=== PATIENT | female | born 1935 | race Caucasian/White ===

== ENCOUNTER → 2017-05-11 | Outpatient (REF) | payer MEDICARE, BC ==
[2017-05-16 00:06] LABS: Lyme Disease IgG Ab 18 kDa Ban Absent (.); Lyme Disease IgG Ab 23 kDa Ban Absent (.); Lyme Disease IgG Ab 28 kDa Ban Absent (.); Lyme Disease IgG Ab 30 kDa Ban Present (.); Lyme Disease IgG Ab 39 kDa Ban Absent (.); Lyme Disease IgG Ab 41 kDa Ban Present (.); Lyme Disease IgG Ab 45 kDa Ban Absent (.); Lyme Disease IgG Ab 58 kDa Ban Absent (.); Lyme Disease IgG Ab 66 kDa Ban Present (.); Lyme Disease IgG Ab 93 kDa Ban Absent (.); Lyme Disease IgG West Blot Int Negative (.); Lyme Disease IgG/IgM Antibodie 1.27 ISR (0.00-0.90); Lyme Disease IgM Ab 23 kDa Ban Absent (.); Lyme Disease IgM Ab 39 kDa Ban Absent (.); Lyme Disease IgM Ab 41 kDa Ban Absent (.); Lyme Disease IgM Ab Quantitati <0.80 index (0.00-0.79); Lyme Disease IgM West Blot Int Negative (.)
== END ==
LOC: M LAB REF 10:39
PROVIDERS: ATTEND Internal Medicine
DX: M35.3 Polymyalgia rheumatica (principal)

== ENCOUNTER → 2017-06-15 | Outpatient (REF) | payer MEDICARE, BC | LOC: M LAB REF 16:45 | PROVIDERS: ATTEND Obstetrics & Gynecology | DX: N81.11 Cystocele, midline (principal); R39.89 Other symptoms and signs involving the genitourinary system ==

== ENCOUNTER → 2017-08-06 | Outpatient (CLI) | payer MEDICARE, BC ==
--- NOTE | 2017-08-06 09:10 | REPMRS ---
Patient History The patient states she has not had a clinical breast exam in over a year. Patient has history of other cancer. Benign excisional biopsy of both breasts. Took hormonal contraceptives for 1 year. Took estrogen for 5 years. Digital Mammo Screening Bilat: August 06, 2017 - Exam #: [id number] Bilateral CC and MLO view(s) were taken. Technologist: Tabitha Agustin, Technologist Prior study comparison: June 10, 2016, bilateral digital mammo screening bilat performed at [facility]. April 10, 2015, bilateral digital mammo screening bilat performed at [facility]. FINDINGS: There are scattered fibroglandular densities. There is a fairly symmetric fibroglandular pattern in both breasts. There has been no interval development of masses, areas of architectural distortion or clusters of microcalcifications typical of malignancy. ASSESSMENT: BI-RADS/ACR category 2 mammogram. Benign finding(s). Recommendation Routine screening mammogram of both breasts in 1 year (for women over age 40). This mammogram was interpreted with the aid of an FDA-approved computer-aided dectection system. Electronically Signed By: Meir Baum MD 08/06/17 [id number]
== END ==
LOC: M RAD 07:42
PROVIDERS: ATTEND Internal Medicine
DX: Z12.31 Encounter for screening mammogram for malignant neoplasm of breast (principal)

== ENCOUNTER → 2017-09-17 | Outpatient (CLI) | payer MEDICARE, BC ==
--- NOTE | 2017-09-17 13:45 | REP ---
PA and lateral chest: There are no comparisons. The lung pedraza appear hyperinflated compatible with COPD, however, requiring clinical confirmation. There are no infiltrates, effusions or masses. The lung pedraza otherwise clear. Cardiac size is normal. The jami, mediastinum, and bony thorax are unremarkable. Impression: Essentially negative PA and lateral chest except for hyperinflated appearing lung pedraza. Signed by Meir Blair MD 09/17/2017 01:36 P
== END ==
LOC: M RAD 11:08
PROVIDERS: ATTEND Internal Medicine
DX: G44.83 Primary cough headache (principal); Z79.899 Other long term (current) drug therapy

== ENCOUNTER 2017-12-07 08:35 | Emergency (ER) | payer MEDICARE, BC ==
[2017-12-07] MEDS ORDERED: ALBUTEROL SULFATE 2.5 MG/0.5 ML INH NEB SOLN As Ordered (10:17)
[2017-12-07 11:22] LABS: BASO # 0.1 10^3/uL (0.0-0.2); BASO % 1.1 % (0.0-1.0); EOS # 0.4 10^3/uL (0.0-0.50); EOS % 3.8 % (0.0-3.0); HEMATOCRIT 44.6 % (36.0-47.0); HEMOGLOBIN 14.4 g/dl (12.0-16.0); IMMATURE GRANULOCYTE % 0.3 % (0-0); LYMPH # 2.9 10^3/uL (1.5-4.5); LYMPH % 31.6 % (24.0-44.0); MEAN CORPUSCULAR HEMOGLOBIN 31.2 pg (27.0-33.0); MEAN CORPUSCULAR HGB CONC 32.3 g/dl (32.0-36.5); MEAN CORPUSCULAR VOLUME 96.7 fl (80.0-96.0); MONO # 0.7 10^3/uL (0.0-0.8); MONO % 7.3 % (0.0-5.0); NEUTROPHILS # 5.1 10^3/uL (1.8-7.7); NEUTROPHILS % 55.9 % (36.0-66.0); PLATELET COUNT, AUTOMATED 337 10^3/uL (150-450); RED BLOOD COUNT 4.61 10^6/uL (4.00-5.40); RED CELL DISTRIBUTION WIDTH 14.8 % (11.5-14.5); WHITE BLOOD COUNT 9.2 10^3/uL (4.0-10.0)
[2017-12-07 11:50] LABS: ANION GAP 9 MEQ/L (8-16); BLOOD UREA NITROGEN 14 MG/DL (7-18); CARBON DIOXIDE LEVEL 29 MEQ/L (21-32); CHLORIDE LEVEL 102 MEQ/L (98-107); CPK CREATINE PHOSPHOKINASE 35 U/L (26-192); CREATININE FOR GFR 0.93 MG/DL (0.55-1.02); GLOMERULAR FILTRATION RATE > 60.0 (>32); GLUCOSE, FASTING 115 MG/DL (70-100); MB/CK RELATIVE INDEX 2.85 (< OR =4); NT-PRO BNP 377 PG/ML (<450); POTASSIUM SERUM 4.1 MEQ/L (3.5-5.1); SODIUM LEVEL 140 MEQ/L (136-145); TROPONIN I < 0.02 NG/ML (< 0.10)
== END 2017-12-07 12:13 | disposition home or self-care (01) ==
LOC: M ED 08:35
DX: J31.0 Chronic rhinitis (principal); R05 Cough; Z87.891 Personal history of nicotine dependence; Z88.0 Allergy status to penicillin
CPT/HCPCS: 71046

== ENCOUNTER → 2018-04-28 | Outpatient (REF) | payer MEDICARE, BC ==
[2018-04-28 16:05] LABS: CREATININE FOR GFR 0.91 MG/DL (0.55-1.30); GLOMERULAR FILTRATION RATE > 60.0 (>32)
[2018-04-28 16:05] LABS: BLOOD UREA NITROGEN 19 MG/DL (7-18)
== END ==
LOC: M LABDRAW1 11:25
DX: M54.2 Cervicalgia (principal)
CPT/HCPCS: 82565

== ENCOUNTER → 2018-04-30 | Outpatient (CLI) | payer MEDICARE, BC | LOC: M PLARAD 09:45 | DX: M54.2 Cervicalgia (principal); M25.512 Pain in left shoulder | CPT/HCPCS: 72156 ==

== ENCOUNTER → 2018-06-28 | Outpatient (REF) | payer MEDICARE, BC ==
[2018-06-28 13:51] LABS: C REACTIVE PROTEIN QUANTITATIV < 0.30 MG/DL (0.00-0.30)
== END ==
LOC: M LAB REF 12:00
DX: M54.2 Cervicalgia (principal)
CPT/HCPCS: 86140

== ENCOUNTER → 2018-08-17 | Outpatient (CLI) | payer MEDICARE, BC ==
[2018-08-17 11:36] LABS: BLOOD UREA NITROGEN 21 MG/DL (7-18)
[2018-08-17 11:36] LABS: CREATININE FOR GFR 0.78 MG/DL (0.55-1.30); GLOMERULAR FILTRATION RATE > 60.0 (>32)
== END ==
LOC: M LAB 10:08
DX: M75.112 Incomplete rotator cuff tear or rupture of left shoulder, not specified as traumatic (principal)

== ENCOUNTER → 2018-08-17 | Outpatient (CLI) | payer MEDICARE, BC | LOC: M RAD 09:38 | DX: Z12.31 Encounter for screening mammogram for malignant neoplasm of breast (principal); M75.112 Incomplete rotator cuff tear or rupture of left shoulder, not specified as traumatic; Z92.0 Personal history of contraception; Z92.23 Personal history of estrogen therapy; Z92.89 Personal history of other medical treatment | CPT/HCPCS: 77067 ==

== ENCOUNTER 2020-10-19 10:09 | Emergency (ER) | payer MEDICARE, BC ==
[~2020-10-19] VITALS: Ht 167.6 cm; Wt 64.5 kg
[2020-10-19] MEDS ORDERED: IBUP-1022 (10:30)
[2020-10-19] MEDS ORDERED: SIMV40TA20 (10:30)
--- NOTE | 2020-10-19 10:51 | REP ---
INDICATION: trauma. COMPARISON: None. TECHNIQUE: Four views. FINDINGS: Four views of the right ankle demonstrate diffuse osteopenia. Ankle mortise is intact. There is mild anterior periarticular swelling. Dystrophic soft tissue calcification or vascular calcification is visible. No fracture is seen. Plantar calcaneal spur is noted. IMPRESSION: No fracture noted. Diffuse osteopenia. Anterior soft tissue swelling. <Electronically signed by Lauri Freeman > 10/19/20 [id number]
--- NOTE | 2020-10-19 10:56 | REP ---
INDICATION: trauma. COMPARISON: Comparison radiographs of the right knee are from February 19, 2012.. TECHNIQUE: Five views. FINDINGS: Five views of the right knee demonstrate diffuse osteopenia. Vascular calcification is noted. There is an obliquely oriented fracture through the proximal fibular diametaphyseal region. This is best appreciated on the lateral radiograph. There is fullness in the suprapatellar bursa on the lateral radiograph indicative of a joint effusion. There is mild patellar spurring. No femoral fracture is seen. There is some clothing artifact. On the oblique radiograph there is a question of depression of the medial tibial plateau. This is not seen on any other view although it would explain the joint effusion.. . No opaque foreign body noted. IMPRESSION: Obliquely oriented nondisplaced fracture through the proximal fibular diametaphyseal zone. Diffuse osteopenia. Evidence of intra-articular joint effusion. Oblique view only findings suggestive of depression of the medial tibial plateau. Consider CT study of the knee. Rule out tibial plateau fracture.. <Electronically signed by Lauri Freeman > 10/19/20 [id number]
--- NOTE | 2020-10-19 11:39 | REP ---
INDICATION: ?tibial plateau fx on xray. COMPARISON: Comparison is made with today's radiographs.. TECHNIQUE: Helical scanning is acquired and 2 mm axial images re-formatted. Coronal and sagittal MPR images are generated and reviewed. FINDINGS: There is diffuse osteopenia. There is no evidence of acute fracture in the distal femur, proximal tibia, or patella. There is a somewhat irregular spur noted projecting posterosuperior Yecenia from the posterior aspect of the medial tibial plateau. This is felt to account for the radiographic finding. No acute tibial plateau fracture is seen. There is an obliquely oriented proximal fibular fracture as noted radiographically without displacement. There is evidence of a suprapatellar bursal joint effusion. Vascular calcification is noted. IMPRESSION: There is a right knee joint effusion. Diffuse osteoporosis is seen. An acute oblique fracture nondisplaced proximal fibula seen. No tibial plateau fracture is seen. Patellofemoral and medial compartment osteoarthritis. There is prominent posterior spurring from the medial aspect of the tibial plateau which account for the radiographic finding. <Electronically signed by Lauri Freeman > 10/19/20 [id number]
[2020-10-19] MEDS ORDERED: NORCO, ANEXSIA 5/325MG TABLET (HYDROcodone/ACETAMINOPHEN) PO ONE (12:30)
[2020-10-19] MEDS ORDERED: NORC1TAB7 PO (13:37)
[2020-10-19 15:20] VITALS: BP 145/68
== END 2020-10-19 15:21 | disposition home or self-care (01) ==
LOC: M ED 10:09
DX: S82.831A Other fracture of upper and lower end of right fibula, initial encounter for closed fracture (principal); M25.461 Effusion, right knee; M81.0 Age-related osteoporosis without current pathological fracture; M85.861 Other specified disorders of bone density and structure, right lower leg; W19.XXXA Unspecified fall, initial encounter; Y92.098 Other place in other non-institutional residence as the place of occurrence of the external cause; E78.9 Disorder of lipoprotein metabolism, unspecified; Z88.0 Allergy status to penicillin; Z79.899 Other long term (current) drug therapy

== ENCOUNTER → 2022-03-17 | Outpatient (REF) | payer MEDICARE ==
[~2022-03-17] MED LIST: IBUP-1022; NORC1TAB7 PO; SIMV40TA20
== END ==
LOC: M LAB REF 10:14
PROVIDERS: ATTEND Internal Medicine
DX: M25.50 Pain in unspecified joint (principal)

== ENCOUNTER → 2022-09-08 | Outpatient (CLI) | payer MEDICARE ==
[~2022-09-08] MED LIST changes: +ISOVUE-300 61% 50ML VIAL As Ordered ONE; +LIDOCAINE 1% MDV 20ML VIAL As Ordered ONE; +methylPREDNISolone SUSP 40MG/ML 1ML VIAL (DEPO MEDROL) As Ordered ONE
== END ==
LOC: M RAD 09:36
PROVIDERS: ATTEND Physician Assistant
DX: M19.011 Primary osteoarthritis, right shoulder (principal); M19.012 Primary osteoarthritis, left shoulder
CPT/HCPCS: 76000; J1030; Q9967

== ENCOUNTER → 2023-01-23 | Outpatient (REF) | payer MEDICARE ==
[~2023-01-23] MED LIST changes: -ISOVUE-300 61% 50ML VIAL As Ordered ONE; -LIDOCAINE 1% MDV 20ML VIAL As Ordered ONE; -methylPREDNISolone SUSP 40MG/ML 1ML VIAL (DEPO MEDROL) As Ordered ONE
[2023-01-23 11:47] LABS: BASO # 0.1 10^3/uL (0.0-0.2); EOS # 0.2 10^3/uL (0.0-0.5); HEMATOCRIT 44.5 % (36.0-47.0); HEMOGLOBIN 14.4 g/dl (12.0-15.5); LYMPH # 3.1 10^3/uL (1.5-5.0); LYMPH % 35.2 % (24.0-44.0); MEAN CORPUSCULAR HEMOGLOBIN 32.3 pg (27.0-33.0); MEAN CORPUSCULAR HGB CONC 32.4 g/dl (32.0-36.5); MEAN CORPUSCULAR VOLUME 99.8 fl (80.0-96.0); MONO # 0.7 10^3/uL (0.0-0.8); MONO % 7.8 % (2.0-8.0); NEUTROPHILS # 4.8 10^3/uL (1.5-8.5); NEUTROPHILS % 53.6 % (36.0-66.0); PLATELET COUNT, AUTOMATED 319 10^3/uL (150-450); RED BLOOD COUNT 4.46 10^6/uL (4.00-5.40); WHITE BLOOD COUNT 8.9 10^3/uL (4.0-10.0)
[2023-01-23 12:22] LABS: ALBUMIN 4.3 G/DL (3.2-5.2); ALKALINE PHOSPHATASE 82 U/L (46-116); ALT/SGPT 38 U/L (7.0-40); AST/SGOT 34 U/L (<34); BILIRUBIN,TOTAL 0.9 MG/DL (0.3-1.2); BLOOD UREA NITROGEN 21 MG/DL (9-23); CARBON DIOXIDE LEVEL 29 MMOL/L (20-31); CHLORIDE LEVEL 102 MMOL/L (98-107); GLOMERULAR FILTRATION RATE > 60.0 (>32); GLUCOSE, FASTING 115 MG/DL (74-106); POTASSIUM SERUM 4.5 MMOL/L (3.5-5.1); SODIUM LEVEL 140 MMOL/L (136-145); THYROID STIMULATING HORMONE 2.446 uIU/ML (0.55-4.78); TOTAL PROTEIN 7.4 G/DL (5.7-8.2)
== END ==
LOC: M LABDRAWC 11:07
PROVIDERS: ATTEND Internal Medicine
DX: M15.9 Polyosteoarthritis, unspecified (principal); R73.09 Other abnormal glucose; E03.9 Hypothyroidism, unspecified

== ENCOUNTER → 2023-12-04 | Outpatient (REF) | payer MEDICARE | LOC: M LAB REF 12:18 | PROVIDERS: ATTEND Internal Medicine | DX: M15.9 Polyosteoarthritis, unspecified (principal) ==

== ENCOUNTER → 2023-12-22 | Outpatient (REF) | payer MEDICARE ==
[2023-12-22 19:41] LABS: BASO # 0.1 10^3/uL (0.0-0.2); EOS # 0.2 10^3/uL (0.0-0.5); EOS % 2.2 % (0.0-3.0); HEMATOCRIT 40.6 % (36.0-47.0); HEMOGLOBIN 13.3 g/dl (12.0-15.5); LYMPH # 3.1 10^3/uL (1.5-5.0); LYMPH % 34.7 % (24.0-44.0); MEAN CORPUSCULAR HEMOGLOBIN 32.2 pg (27.0-33.0); MEAN CORPUSCULAR HGB CONC 32.8 g/dl (32.0-36.5); MEAN CORPUSCULAR VOLUME 98.3 fl (80.0-96.0); MONO # 0.7 10^3/uL (0.0-0.8); MONO % 7.9 % (2.0-8.0); NEUTROPHILS # 4.8 10^3/uL (1.5-8.5); NEUTROPHILS % 53.9 % (36.0-66.0); PLATELET COUNT, AUTOMATED 367 10^3/uL (150-450); RED BLOOD COUNT 4.13 10^6/uL (4.00-5.40); WHITE BLOOD COUNT 8.9 10^3/uL (4.0-10.0)
[2023-12-22 20:20] LABS: THYROID STIMULATING HORMONE 2.804 uIU/ML (0.55-4.78)
[2023-12-22 20:24] LABS: ALBUMIN 3.8 G/DL (3.2-5.2); ALKALINE PHOSPHATASE 74 U/L (46-116); ALT/SGPT 25 U/L (7.0-40); AST/SGOT 23 U/L (<34); BILIRUBIN,TOTAL 0.4 MG/DL (0.3-1.2); BLOOD UREA NITROGEN 24 MG/DL (9-23); CALCIUM LEVEL 9.5 MG/DL (8.3-10.6); CARBON DIOXIDE LEVEL 28 MMOL/L (20-31); CHLORIDE LEVEL 105 MMOL/L (98-107); CREATININE FOR GFR 0.89 MG/DL (0.55-1.30); GLOMERULAR FILTRATION RATE > 60.0 (>32); GLUCOSE, FASTING 103 MG/DL (74-106); POTASSIUM SERUM 4.3 MMOL/L (3.5-5.1); SODIUM LEVEL 140 MMOL/L (136-145); TOTAL PROTEIN 6.8 G/DL (5.7-8.2)
[2023-12-25 08:51] LABS: CHOLESTEROL LEVEL 225 MG/DL (<200); CHOLESTEROL RISK RATIO 3.23 (<5); HDL CHOLESTEROL 69.6 MG/DL (>40); LDL CHOLESTEROL 136.4 MG/DL (<100); NON-HDL-C 155.4 MG/DL; TRIGLYCERIDES LEVEL 95 MG/DL (<150)
== END ==
LOC: M LABDRAWC 17:36
PROVIDERS: ATTEND Internal Medicine
DX: E78.00 Pure hypercholesterolemia, unspecified (principal); E03.9 Hypothyroidism, unspecified

== ENCOUNTER 2024-04-27 01:12 | Inpatient (IN) | payer MEDICARE ==
[~2024-04-27] VITALS: Ht 162.6 cm; Wt 95.4 kg
[2024-04-27] VITALS (12 sets, daily range): BP systolic 146–192; BP diastolic 64–98; TEMP 96.7–97.9; O2SAT 94–99
[~2024-04-27 01:12] MED LIST changes: -IBUP-1022; +IBUP-1022 PO
[2024-04-27] MEDS ORDERED: ISOVUE-370 76% 100ML VIAL As Ordered ONE (01:31)
[2024-04-27 01:43] LABS: BASO # 0.1 10^3/uL (0.0-0.2); BASO % 1.3 % (0.0-1.0); EOS # 0.2 10^3/uL (0.0-0.5); EOS % 2.5 % (0.0-3.0); HEMATOCRIT 41.4 % (36.0-47.0); HEMOGLOBIN 13.9 g/dl (12.0-15.5); LYMPH # 3.5 10^3/uL (1.5-5.0); LYMPH % 37.3 % (24.0-44.0); MEAN CORPUSCULAR HEMOGLOBIN 32.3 pg (27.0-33.0); MEAN CORPUSCULAR HGB CONC 33.6 g/dl (32.0-36.5); MEAN CORPUSCULAR VOLUME 96.3 fl (80.0-96.0); MONO % 10.7 % (2.0-8.0); NEUTROPHILS # 4.4 10^3/uL (1.5-8.5); NEUTROPHILS % 47.9 % (36.0-66.0); PLATELET COUNT, AUTOMATED 328 10^3/uL (150-450); WHITE BLOOD COUNT 9.3 10^3/uL (4.0-10.0)
[2024-04-27 02:04] LABS: INR 0.98; PARTIAL THROMBOPLASTIN TIME 27.1 SECONDS (24.8-34.2); PROTHROMBIN TIME 12.7 SECONDS (12.5-14.5)
[2024-04-27 02:07] LABS: CK-MB VALUE MASS < 1.0 NG/ML (<3.6)
[2024-04-27 02:08] LABS: BLOOD UREA NITROGEN 22 MG/DL (9-23); CALCIUM LEVEL 10.1 MG/DL (8.3-10.6); CARBON DIOXIDE LEVEL 32 MMOL/L (20-31); CHLORIDE LEVEL 105 MMOL/L (98-107); CREATININE FOR GFR 0.82 MG/DL (0.55-1.30); GLOMERULAR FILTRATION RATE > 60.0 (>32); GLUCOSE, FASTING 98 MG/DL (74-106); POTASSIUM SERUM 3.7 MMOL/L (3.5-5.1); SODIUM LEVEL 142 MMOL/L (136-145)
[2024-04-27 02:12] LABS: CPK CREATINE PHOSPHOKINASE 73 U/L (34-145); MB/CK RELATIVE INDEX 1.36 (< OR =4)
[2024-04-27] MEDS: LABETALOL 100MG/20ML VIAL IV STA (02:29)
[2024-04-27] MEDS: ASPIRIN 325 MG TAB PO ONE (02:45)
[2024-04-27] MEDS ORDERED: NS 1,000 ML IV SCH (03:20)
[2024-04-27] MEDS: KCL 20MEQ in NS 1000ML 1,000 ML IV SCH (03:56)
[2024-04-27 06:37] LABS: BASO # 0.1 10^3/uL (0.0-0.2); BASO % 1.1 % (0.0-1.0); EOS # 0.2 10^3/uL (0.0-0.5); HEMATOCRIT 39.2 % (36.0-47.0); HEMOGLOBIN 13.2 g/dl (12.0-15.5); LYMPH # 2.5 10^3/uL (1.5-5.0); LYMPH % 27.7 % (24.0-44.0); MEAN CORPUSCULAR HEMOGLOBIN 32.4 pg (27.0-33.0); MEAN CORPUSCULAR HGB CONC 33.7 g/dl (32.0-36.5); MEAN CORPUSCULAR VOLUME 96.3 fl (80.0-96.0); MONO # 0.9 10^3/uL (0.0-0.8); MONO % 10.1 % (2.0-8.0); NEUTROPHILS # 5.2 10^3/uL (1.5-8.5); NEUTROPHILS % 58.8 % (36.0-66.0); PLATELET COUNT, AUTOMATED 306 10^3/uL (150-450); RED BLOOD COUNT 4.07 10^6/uL (4.00-5.40); WHITE BLOOD COUNT 8.8 10^3/uL (4.0-10.0)
[2024-04-27] MEDS ORDERED: SIMV20TA22 PO (07:12)
[2024-04-27] MEDS ORDERED: HOME MED LIST COMPLETE! XX SCH (07:15)
[2024-04-27 07:35] LABS: ALBUMIN 3.4 G/DL (3.2-5.2); ALKALINE PHOSPHATASE 76 U/L (46-116); ALT/SGPT 23 U/L (7.0-40); AST/SGOT 20 U/L (<34); BILIRUBIN,DIRECT 0.1 MG/DL (<0.4); BILIRUBIN,TOTAL 0.6 MG/DL (0.3-1.2); BLOOD UREA NITROGEN 20 MG/DL (9-23); CALCIUM LEVEL 9.4 MG/DL (8.3-10.6); CARBON DIOXIDE LEVEL 29 MMOL/L (20-31); CHLORIDE LEVEL 105 MMOL/L (98-107); CHOLESTEROL LEVEL 210 MG/DL (<200); CHOLESTEROL RISK RATIO 3.18 (<5); GLOMERULAR FILTRATION RATE > 60.0 (>32); GLUCOSE, FASTING 102 MG/DL (74-106); HDL CHOLESTEROL 65.9 MG/DL (>40); LDL CHOLESTEROL 132.5 MG/DL (<100); NON-HDL-C 144.1 MG/DL; POTASSIUM SERUM 3.6 MMOL/L (3.5-5.1); SODIUM LEVEL 141 MMOL/L (136-145); TOTAL PROTEIN 6.3 G/DL (5.7-8.2); TRIGLYCERIDES LEVEL 58 MG/DL (<150)
[2024-04-27 08:08] LABS: HEMOGLOBIN A1c 5.6 % (4.0-6.0)
[2024-04-27] MEDS: HEPARIN SOD (PORCINE) 5000UNITS/ML 1ML VIAL/SYRINGE SQ SCH (08:20)
[2024-04-27] MEDS: ASPIRIN 81MG ENTERIC TABLET PO SCH (08:20)
[2024-04-27] MEDS: hydrALAZINE 20MG/ML 1ML VIAL IV ONE (10:30)
[2024-04-27] MEDS: CLOPIDOGREL 75 MG TAB PO SCH (14:16)
[2024-04-27] MEDS: hydrALAZINE 20MG/ML 1ML VIAL IV PRN (14:16)
[2024-04-27] MEDS: RAMELTEON 8 MG TAB (ROZEREM) PO SCH (21:13)
[2024-04-27] MEDS: ATORVASTATIN 20 MG TAB PO SCH (21:13)
[2024-04-28] VITALS (10 sets, daily range): BP systolic 82–190; BP diastolic 47–95; TEMP 96.3–97.5; O2SAT 93–99
[2024-04-28 06:51] LABS: HEMATOCRIT 41.5 % (36.0-47.0); HEMOGLOBIN 13.9 g/dl (12.0-15.5); MEAN CORPUSCULAR HEMOGLOBIN 32.5 pg (27.0-33.0); MEAN CORPUSCULAR HGB CONC 33.5 g/dl (32.0-36.5); PLATELET COUNT, AUTOMATED 338 10^3/uL (150-450); RED BLOOD COUNT 4.28 10^6/uL (4.00-5.40); WHITE BLOOD COUNT 9.8 10^3/uL (4.0-10.0)
[2024-04-28 07:20] LABS: ALBUMIN 3.6 G/DL (3.2-5.2); ALKALINE PHOSPHATASE 78 U/L (46-116); ALT/SGPT 24 U/L (7.0-40); AST/SGOT 22 U/L (<34); BILIRUBIN,TOTAL 0.8 MG/DL (0.3-1.2); BLOOD UREA NITROGEN 18 MG/DL (9-23); CALCIUM LEVEL 9.8 MG/DL (8.3-10.6); CARBON DIOXIDE LEVEL 28 MMOL/L (20-31); CHLORIDE LEVEL 104 MMOL/L (98-107); CREATININE FOR GFR 0.74 MG/DL (0.55-1.30); GLOMERULAR FILTRATION RATE > 60.0 (>32); GLUCOSE, FASTING 112 MG/DL (74-106); SODIUM LEVEL 140 MMOL/L (136-145); TOTAL PROTEIN 6.6 G/DL (5.7-8.2)
[2024-04-29] VITALS (10 sets, daily range): BP systolic 135–197; BP diastolic 63–91; TEMP 97–98.3; O2SAT 92–97
[2024-04-29 09:49] LABS: HEMATOCRIT 41.6 % (36.0-47.0); HEMOGLOBIN 13.9 g/dl (12.0-15.5); MEAN CORPUSCULAR HEMOGLOBIN 32.5 pg (27.0-33.0); MEAN CORPUSCULAR HGB CONC 33.4 g/dl (32.0-36.5); MEAN CORPUSCULAR VOLUME 97.2 fl (80.0-96.0); PLATELET COUNT, AUTOMATED 380 10^3/uL (150-450); RED BLOOD COUNT 4.28 10^6/uL (4.00-5.40); WHITE BLOOD COUNT 9.3 10^3/uL (4.0-10.0)
[2024-04-29 10:18] LABS: ALBUMIN 3.6 G/DL (3.2-5.2); ALKALINE PHOSPHATASE 82 U/L (46-116); ALT/SGPT 28 U/L (7.0-40); AST/SGOT 20 U/L (<34); BILIRUBIN,TOTAL 0.7 MG/DL (0.3-1.2); BLOOD UREA NITROGEN 20 MG/DL (9-23); CALCIUM LEVEL 9.6 MG/DL (8.3-10.6); CARBON DIOXIDE LEVEL 24 MMOL/L (20-31); CHLORIDE LEVEL 104 MMOL/L (98-107); GLOMERULAR FILTRATION RATE > 60.0 (>32); GLUCOSE, FASTING 174 MG/DL (74-106); POTASSIUM SERUM 3.6 MMOL/L (3.5-5.1); SODIUM LEVEL 140 MMOL/L (136-145); TOTAL PROTEIN 6.7 G/DL (5.7-8.2)
[2024-04-29] MEDS: CEFDINIR 300 MG CAP (OMNICEF) PO SCH (12:46)
[2024-04-30 03:47] VITALS: BP 150/78; TEMP 97.8; O2SAT 97
[2024-04-30 05:26] LABS: HEMATOCRIT 39.3 % (36.0-47.0); MEAN CORPUSCULAR HEMOGLOBIN 32.3 pg (27.0-33.0); MEAN CORPUSCULAR HGB CONC 33.1 g/dl (32.0-36.5); MEAN CORPUSCULAR VOLUME 97.8 fl (80.0-96.0); PLATELET COUNT, AUTOMATED 308 10^3/uL (150-450); RED BLOOD COUNT 4.02 10^6/uL (4.00-5.40); WHITE BLOOD COUNT 8.4 10^3/uL (4.0-10.0)
[2024-04-30 05:52] LABS: ALBUMIN 3.3 G/DL (3.2-5.2); ALKALINE PHOSPHATASE 72 U/L (46-116); ALT/SGPT 25 U/L (7.0-40); AST/SGOT 19 U/L (<34); BILIRUBIN,TOTAL 0.7 MG/DL (0.3-1.2); BLOOD UREA NITROGEN 19 MG/DL (9-23); CALCIUM LEVEL 9.2 MG/DL (8.3-10.6); CARBON DIOXIDE LEVEL 28 MMOL/L (20-31); CHLORIDE LEVEL 105 MMOL/L (98-107); CREATININE FOR GFR 0.72 MG/DL (0.55-1.30); GLOMERULAR FILTRATION RATE > 60.0 (>32); GLUCOSE, FASTING 103 MG/DL (74-106); POTASSIUM SERUM 3.7 MMOL/L (3.5-5.1); SODIUM LEVEL 139 MMOL/L (136-145); TOTAL PROTEIN 5.9 G/DL (5.7-8.2)
[2024-04-30 06:22] VITALS: BP_SYST 121; BP_SYST 172; BP_SYST 173; BP_DIAS 69; BP_DIAS 73; BP_DIAS 76
[2024-04-30] MEDS ORDERED: CEFD300CAP PO (07:29)
[2024-04-30] MEDS ORDERED: AMLO25TA PO (07:29)
[2024-04-30] MEDS ORDERED: ASPI81TAEC PO (07:29)
[2024-04-30] MEDS ORDERED: ATOR80TA59 PO (07:29)
[2024-04-30] MEDS ORDERED: CLOP75TA2 PO (07:29)
[2024-04-30 08:00] VITALS: BP 164/84; TEMP 98.2; O2SAT 97
[2024-04-30 08:45] VITALS: BP 186/79
== END 2024-04-30 11:37 | disposition home health service (06) | DRG 66 ==
LOC: M ED 01:12 → M ED INP 03:20 → M PCU 04:02
PROVIDERS: ADMIT Preventive Medicine Undersea and Hyperbaric Medicine; ATTEND Internal Medicine
PROC: B246ZZZ Ultrasonography of Right and Left Heart (ICD-10-PCS; principal; 2024-04-27)
DX: I63.521 Cerebral infarction due to unspecified occlusion or stenosis of right anterior cerebral artery (principal); E78.5 Hyperlipidemia, unspecified; I10 Essential (primary) hypertension; R47.81 Slurred speech; R29.810 Facial weakness; I95.1 Orthostatic hypotension; I16.0 Hypertensive urgency; F41.9 Anxiety disorder, unspecified; R26.81 Unsteadiness on feet; Z88.0 Allergy status to penicillin

== ENCOUNTER 2024-05-19 13:25 | Observation (INO) | payer MEDICARE ==
[~2024-05-19] VITALS: Ht 162.6 cm; Wt 57.2 kg
[~2024-05-19 13:25] MED LIST changes: +AMLO25TA PO; +ASPI81TAEC PO; +ATOR80TA59 PO; +CEFD300CAP PO; +CLOP75TA2 PO; +SIMV20TA22 PO
[2024-05-19 14:05] LABS: BASO # 0.1 10^3/uL (0.0-0.2); EOS # 0.2 10^3/uL (0.0-0.5); EOS % 1.5 % (0.0-3.0); HEMATOCRIT 42.5 % (36.0-47.0); HEMOGLOBIN 13.6 g/dl (12.0-15.5); LYMPH # 2.5 10^3/uL (1.5-5.0); LYMPH % 24.6 % (24.0-44.0); MEAN CORPUSCULAR HEMOGLOBIN 31.9 pg (27.0-33.0); MEAN CORPUSCULAR VOLUME 99.8 fl (80.0-96.0); MONO # 0.6 10^3/uL (0.0-0.8); MONO % 6.1 % (2.0-8.0); NEUTROPHILS # 6.7 10^3/uL (1.5-8.5); NEUTROPHILS % 66.5 % (36.0-66.0); PLATELET COUNT, AUTOMATED 314 10^3/uL (150-450); RED BLOOD COUNT 4.26 10^6/uL (4.00-5.40); WHITE BLOOD COUNT 10.1 10^3/uL (4.0-10.0)
[2024-05-19 14:20] LABS: INR 0.98; PARTIAL THROMBOPLASTIN TIME 22.2 SECONDS (24.8-34.2); PROTHROMBIN TIME 12.7 SECONDS (12.5-14.5)
[2024-05-19] MEDS: NS 500 ML IV ONE (14:30)
[2024-05-19 14:37] LABS: BLOOD UREA NITROGEN 14 MG/DL (9-23); CALCIUM LEVEL 9.3 MG/DL (8.3-10.6); CARBON DIOXIDE LEVEL 25 MMOL/L (20-31); CHLORIDE LEVEL 104 MMOL/L (98-107); CK-MB VALUE MASS < 1.0 NG/ML (<3.6); CREATININE FOR GFR 0.91 MG/DL (0.55-1.30); GLOMERULAR FILTRATION RATE > 60.0 (>32); GLUCOSE, FASTING 176 MG/DL (74-106); MAGNESIUM LEVEL 1.9 MG/DL (1.8-2.4); POTASSIUM SERUM 3.3 MMOL/L (3.5-5.1); SODIUM LEVEL 139 MMOL/L (136-145)
[2024-05-19 14:38] LABS: THYROID STIMULATING HORMONE 5.403 uIU/ML (0.55-4.78)
[2024-05-19 14:46] LABS: CPK CREATINE PHOSPHOKINASE 55 U/L (34-145); MB/CK RELATIVE INDEX 1.81 (< OR =4)
[2024-05-19] MEDS: POTASSIUM CHLORIDE 10MEQ SR TABLET PO ONE (15:22)
[2024-05-19 15:37] LABS: CK-MB VALUE MASS < 1.0 NG/ML (<3.6); CPK CREATINE PHOSPHOKINASE 65 U/L (34-145); MB/CK RELATIVE INDEX 1.53 (< OR =4)
[2024-05-19] MEDS ORDERED: ACET650T61 PO (17:45)
[2024-05-19] MEDS ORDERED: VITAD400CA PO (17:45)
[2024-05-19] MEDS ORDERED: AMLO2.5T3 PO (17:45)
[2024-05-19] MEDS ORDERED: CLOP75TA99 PO (17:45)
[2024-05-19] MEDS ORDERED: ASPI81TA26 PO (17:45)
[2024-05-19] MEDS ORDERED: STOO100C30 PO (17:45)
[2024-05-19] MEDS ORDERED: CENT1TAB9 PO (17:45)
[2024-05-19] MEDS ORDERED: ATOR80TA59 PO (17:45)
[2024-05-19] MEDS ORDERED: HOME MED LIST COMPLETE! XX SCH (17:50)
[2024-05-19 18:38] VITALS: BP 200/94; TEMP 97.1; O2SAT 97
[2024-05-19] MEDS: **hydrALAZINE HCL** 25 MG TAB PO SCH (18:58)
[2024-05-19 19:50] VITALS: BP 160/74
[2024-05-19 20:09] VITALS: TEMP 98.2; O2SAT 97
[2024-05-19] MEDS: RAMELTEON 8 MG TAB (ROZEREM) PO PRN (21:56)
[2024-05-20] VITALS: BP 150/77; TEMP 97.2; O2SAT 95
[2024-05-20 03:24] VITALS: BP 154/71; TEMP 97.2; O2SAT 99
[2024-05-20 05:08] LABS: BASO # 0.1 10^3/uL (0.0-0.2); BASO % 1.3 % (0.0-1.0); EOS # 0.2 10^3/uL (0.0-0.5); EOS % 2.3 % (0.0-3.0); HEMATOCRIT 37.8 % (36.0-47.0); HEMOGLOBIN 12.5 g/dl (12.0-15.5); LYMPH # 2.1 10^3/uL (1.5-5.0); LYMPH % 24.9 % (24.0-44.0); MEAN CORPUSCULAR HEMOGLOBIN 32.1 pg (27.0-33.0); MEAN CORPUSCULAR HGB CONC 33.1 g/dl (32.0-36.5); MEAN CORPUSCULAR VOLUME 96.9 fl (80.0-96.0); MONO # 0.7 10^3/uL (0.0-0.8); MONO % 8.1 % (2.0-8.0); NEUTROPHILS # 5.2 10^3/uL (1.5-8.5); NEUTROPHILS % 63.2 % (36.0-66.0); PLATELET COUNT, AUTOMATED 278 10^3/uL (150-450); WHITE BLOOD COUNT 8.3 10^3/uL (4.0-10.0)
[2024-05-20 05:24] LABS: BLOOD UREA NITROGEN 11 MG/DL (9-23); CALCIUM LEVEL 9.3 MG/DL (8.3-10.6); CARBON DIOXIDE LEVEL 27 MMOL/L (20-31); CHLORIDE LEVEL 109 MMOL/L (98-107); CREATININE FOR GFR 0.71 MG/DL (0.55-1.30); GLOMERULAR FILTRATION RATE > 60.0 (>32); GLUCOSE, FASTING 94 MG/DL (74-106); POTASSIUM SERUM 3.8 MMOL/L (3.5-5.1); SODIUM LEVEL 142 MMOL/L (136-145)
[2024-05-20 07:41] VITALS: BP 147/72; TEMP 98.3; O2SAT 95
[2024-05-20] MEDS: ATORVASTATIN 20 MG TAB PO SCH (08:15)
[2024-05-20] MEDS: CLOPIDOGREL 75 MG TAB PO SCH (08:15)
[2024-05-20 08:16] VITALS: BP 147/72
[2024-05-20] MEDS: DOCUSATE SODIUM 100MG CAPSULE PO SCH (08:16)
[2024-05-20] MEDS: ASPIRIN 81MG ENTERIC TABLET PO SCH (08:16)
[2024-05-20] MEDS ORDERED: ACETAMINOPHEN TAB 650MG DOSE (2X325MG) PO PRN (09:15)
== END 2024-05-20 12:20 | disposition home or self-care (01) ==
LOC: EDBD 13:25 → M ED 13:25 → M ED INP 17:17 → M PCU 18:28
PROVIDERS: ADMIT Internal Medicine Nephrology; ATTEND Internal Medicine Nephrology
DX: R55 Syncope and collapse (principal); R26.81 Unsteadiness on feet; Z86.73 Personal history of transient ischemic attack (TIA), and cerebral infarction without residual deficits; K57.92 Diverticulitis of intestine, part unspecified, without perforation or abscess without bleeding; M25.512 Pain in left shoulder; D18.1 Lymphangioma, any site; I10 Essential (primary) hypertension; E78.5 Hyperlipidemia, unspecified; Z79.82 Long term (current) use of aspirin; Z79.01 Long term (current) use of anticoagulants; Z79.899 Other long term (current) drug therapy; Z88.0 Allergy status to penicillin
CPT/HCPCS: 36415; 70450; 71045; 80048; 82550; 82553; 83735; 84439; 84443; 84484; 85025; 85610; 85730; 93005; 93041; 94760; 96374; 97161; 99285; G0378

== ENCOUNTER → 2024-06-08 | Outpatient (REF) | payer MEDICARE ==
[~2024-06-08] MED LIST changes: +ACET650T61 PO; +AMLO2.5T3 PO; +ASPI81TA26 PO; +CENT1TAB9 PO; +CLOP75TA99 PO; +STOO100C30 PO; +VITAD400CA PO
[2024-06-08 13:39] LABS: APPEARANCE, URINE CLEAR (CLEAR); BACTERIA, URINE AUTO NEGATIVE (NEGATIVE); BILIRUBIN, URINE AUTO NEGATIVE (NEGATIVE); BLOOD, URINE BLOOD NEGATIVE (NEGATIVE); COLOR, URINE YELLOW (YELLOW); GLUCOSE, URINE (UA) AUTO NEGATIVE (NEGATIVE); KETONE, URINE AUTO NEGATIVE (NEGATIVE); LEUKOCYTE ESTERASE, URINE AUTO NEGATIVE (NEGATIVE); NITRITE, URINE AUTO NEGATIVE (NEGATIVE); PROTEIN, URINE AUTO NEGATIVE (NEGATIVE); RBC, URINE AUTO 0 /HPF (0-3); SPECIFIC GRAVITY URINE AUTO 1.005 (1.002-1.035); SQUAMOUS EPITHELIAL CELL UR AU 0 /HPF (0-6); UROBILINOGEN, URINE AUTO 0.2 mg/dL (0.0-2.0); WBC, URINE AUTO 1 /HPF (0-3)
== END ==
LOC: M LAB REF 12:51
PROVIDERS: ATTEND Physician Assistant Medical
DX: R55 Syncope and collapse (principal); R32 Unspecified urinary incontinence

== ENCOUNTER → 2024-08-04 | Outpatient (REF) | payer MEDICARE ==
[2024-08-04 13:00] LABS: BASO # 0.1 10^3/uL (0.0-0.2); BASO % 1.1 % (0.0-1.0); EOS # 0.1 10^3/uL (0.0-0.5); EOS % 1.8 % (0.0-3.0); HEMATOCRIT 40.4 % (36.0-47.0); HEMOGLOBIN 12.9 g/dl (12.0-15.5); LYMPH # 2.9 10^3/uL (1.5-5.0); LYMPH % 40.1 % (24.0-44.0); MEAN CORPUSCULAR HEMOGLOBIN 30.5 pg (27.0-33.0); MEAN CORPUSCULAR HGB CONC 31.9 g/dl (32.0-36.5); MEAN CORPUSCULAR VOLUME 95.5 fl (80.0-96.0); MONO # 0.5 10^3/uL (0.0-0.8); NEUTROPHILS # 3.5 10^3/uL (1.5-8.5); NEUTROPHILS % 49.7 % (36.0-66.0); PLATELET COUNT, AUTOMATED 401 10^3/uL (150-450); RED BLOOD COUNT 4.23 10^6/uL (4.00-5.40); WHITE BLOOD COUNT 7.1 10^3/uL (4.0-10.0)
[2024-08-04 13:34] LABS: ALBUMIN 3.8 G/DL (3.2-5.2); BILIRUBIN,TOTAL 0.6 MG/DL (0.3-1.2); CALCIUM LEVEL 10.1 MG/DL (8.3-10.6); CHOLESTEROL RISK RATIO 3.56 (<5); CREATININE FOR GFR 0.97 MG/DL (0.55-1.30); GLOMERULAR FILTRATION RATE 57.7 (>32); HDL CHOLESTEROL 46.9 MG/DL (>40); LDL CHOLESTEROL 101.1 MG/DL (<100); NON-HDL-C 120.1 MG/DL; POTASSIUM SERUM 4.6 MMOL/L (3.5-5.1); THYROID STIMULATING HORMONE 1.815 uIU/ML (0.55-4.78); TOTAL PROTEIN 6.8 G/DL (5.7-8.2)
== END ==
LOC: M LABDRAWC 11:45
PROVIDERS: ATTEND Internal Medicine
DX: I10 Essential (primary) hypertension (principal); M15.9 Polyosteoarthritis, unspecified; M35.3 Polymyalgia rheumatica

== ENCOUNTER → 2025-01-12 | Outpatient (REF) | payer MEDICARE ==
[2025-01-12 19:17] LABS: ALBUMIN 3.9 G/DL (3.2-5.2); ALKALINE PHOSPHATASE 98 U/L (35-104); ALT/SGPT 37 U/L (7.0-40); AST/SGOT 24 U/L (<34); BILIRUBIN,TOTAL 0.5 MG/DL (0.3-1.2); BLOOD UREA NITROGEN 12 MG/DL (9-23); CALCIUM LEVEL 9.8 MG/DL (8.3-10.6); CARBON DIOXIDE LEVEL 27 MMOL/L (20-31); CHLORIDE LEVEL 105 MMOL/L (98-107); CHOLESTEROL LEVEL 199 MG/DL (<200); CREATININE FOR GFR 0.83 MG/DL (0.55-1.30); GLOMERULAR FILTRATION RATE > 60.0 (>32); GLUCOSE, FASTING 128 MG/DL (74-106); HDL CHOLESTEROL 62.1 MG/DL (>40); LDL CHOLESTEROL 103.5 MG/DL (<100); NON-HDL-C 136.9 MG/DL; POTASSIUM SERUM 4.6 MMOL/L (3.5-5.1); SODIUM LEVEL 141 MMOL/L (136-145); TRIGLYCERIDES LEVEL 167 MG/DL (<150)
[2025-01-12 19:18] LABS: BASO # 0.1 10^3/uL (0.0-0.2); BASO % 1.5 % (0.0-1.0); EOS # 0.1 10^3/uL (0.0-0.5); EOS % 1.4 % (0.0-3.0); HEMATOCRIT 42.6 % (36.0-47.0); HEMOGLOBIN 13.7 g/dl (12.0-15.5); LYMPH # 2.2 10^3/uL (1.5-5.0); LYMPH % 30.1 % (24.0-44.0); MEAN CORPUSCULAR HEMOGLOBIN 31.5 pg (27.0-33.0); MEAN CORPUSCULAR HGB CONC 32.2 g/dl (32.0-36.5); MEAN CORPUSCULAR VOLUME 97.9 fl (80.0-96.0); MONO # 0.5 10^3/uL (0.0-0.8); MONO % 7.5 % (2.0-8.0); NEUTROPHILS # 4.3 10^3/uL (1.5-8.5); NEUTROPHILS % 59.4 % (36.0-66.0); PLATELET COUNT, AUTOMATED 356 10^3/uL (150-450); RED BLOOD COUNT 4.35 10^6/uL (4.00-5.40); WHITE BLOOD COUNT 7.2 10^3/uL (4.0-10.0)
[2025-01-12 19:19] LABS: THYROID STIMULATING HORMONE 2.022 uIU/ML (0.55-4.78)
== END ==
LOC: M LAB REF 17:00 → M LABDRAWC 17:00
PROVIDERS: ATTEND Internal Medicine
DX: M15.9 Polyosteoarthritis, unspecified (principal); N18.31 Chronic kidney disease, stage 3a; E78.00 Pure hypercholesterolemia, unspecified

== ENCOUNTER → 2025-07-04 | Outpatient (REF) | payer MEDICARE ==
[2025-07-04 19:05] LABS: ALT/SGPT 39.0 U/L (7.0-40); AST/SGOT 31.0 U/L (<34); CALCIUM LEVEL 9.4 MG/DL (8.3-10.6); CARBON DIOXIDE LEVEL 26.0 MMOL/L (20-31); CHLORIDE LEVEL 105.0 MMOL/L (98-107); CHOLESTEROL LEVEL 157.0 MG/DL (<200); CHOLESTEROL RISK RATIO 3.38 (<5); CREATININE FOR GFR 0.78 MG/DL (0.55-1.30); GLOMERULAR FILTRATION RATE 72.6 (>32); LDL CHOLESTEROL 88.0 MG/DL (<100); NON-HDL-C 110.6 MG/DL; POTASSIUM SERUM 4.3 MMOL/L (3.5-5.1); SODIUM LEVEL 142.0 MMOL/L (136-145); TRIGLYCERIDES LEVEL 113.0 MG/DL (<150)
[2025-07-04 19:06] LABS: BASO # 0.1 10^3/uL (0.0-0.2); BASO % 1.3 % (0.0-1.0); EOS # 0.3 10^3/uL (0.0-0.5); EOS % 3.4 % (0.0-3.0); LYMPH # 2.7 10^3/uL (1.5-5.0); LYMPH % 32.3 % (24.0-44.0); MONO # 0.8 10^3/uL (0.0-0.8); MONO % 9.1 % (2.0-8.0); NEUTROPHILS # 4.4 10^3/uL (1.5-8.5); NEUTROPHILS % 53.7 % (36.0-66.0); PLATELET COUNT, AUTOMATED 346 10^3/uL (150-450)
== END ==
LOC: M LABDRAWC 17:39
PROVIDERS: ATTEND Internal Medicine
DX: E78.00 Pure hypercholesterolemia, unspecified (principal); R55 Syncope and collapse